=== PATIENT | male | born 1970 | race Caucasian/White ===

== ENCOUNTER 2024-01-27 12:56 | Emergency (ER) | payer OTHER ==
[~2024-01-27] VITALS: Ht 177.8 cm; Wt 112.6 kg
[2024-01-27 13:09] VITALS: BP 164/94; PULSE 75; RESP 20; TEMP 98; O2SAT 100
[2024-01-27] MEDS: MORPHINE SULFATE 10 MG/ML VIAL IVP ONE (14:07)
[2024-01-27] MEDS: oxyCODONE/APAP 5/325 MG 1 TAB TAB PO ONE (16:44)
[2024-01-27] MEDS: KETOROLAC 30 MG/ML VIAL IVP ONE (16:45)
[2024-01-27] MEDS ORDERED: IBUP-2213 PO (17:22)
[2024-01-27] MEDS ORDERED: ACET-8905 PO (17:22)
[2024-01-27 17:51] VITALS: BP 110/59; PULSE 80; RESP 17; TEMP 98; O2SAT 96
== END 2024-01-27 17:50 | disposition home or self-care (01) ==
LOC: MED 12:56
DX: S42.201A Unspecified fracture of upper end of right humerus, initial encounter for closed fracture (principal); Z79.899 Other long term (current) drug therapy; W18.39XA Other fall on same level, initial encounter; Y92.89 Other specified places as the place of occurrence of the external cause; Y93.89 Activity, other specified; Y99.8 Other external cause status
CPT/HCPCS: 73030; 73060; 96374; 96375; 99284; J1885; J2270; Q0092